=== PATIENT | female | born 1995 | race Caucasian/White ===

== ENCOUNTER 2016-07-30 23:11 | Emergency (ER) | payer BC ==
[2016-07-30 23:44] VITALS: BP 130/79; PULSE 77; TEMP 98; BMI 20.4
[2016-07-31] MEDS ORDERED: LIDOCAINE 2% VISCOUS ORAL 15 ML PO ONE (01:20)
--- NOTE | 2016-07-31 01:51 | EDPRACDOC ---
- General Information Chief Complaint: Sore Throat Stated Complaint: SORE THROAT/WHEEZING/BODYACHES Information Source: Patient Mode Of Arrival: Car Home Medications: Home Medications Ciprofloxacin HCl [Cipro] 500 mg PO BID #20 tab 02/02/16 Hydrocodone Bit/Acetaminophen [[place] 5-325 Tablet] 1 each PO Q4H #10 tab Ondansetron HCl [Zofran] 4 mg PO Q6H PRN #20 tab 02/02/16 Phenazopyridine [Pyridium] 100 mg PO TID #30 tab 02/02/16 Lidocaine [Lidocaine 2% Viscous Solution] 15 ml PO DIR PRN #1 bot 07/31/16 Allergies/Adverse Reactions: Allergies Allergy/AdvReac Type Severity Reaction Status Date / Time No Known Allergies Allergy Verified 02/02/16 11:53 - History of 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 Denies sob, contact exposure. Med hx = none. Surgical hx = none. Sore Throat Symptoms: Reports: Pain White Spots Location: Denies: Lips, Tongue, Buccal Membrane, Gingiva, Palate, Pharynx, Other Recent: Reports: None Relevant History of: Reports: None Pain Severity: Reports: Severe Urinary Output: Normal Oral Intake: Decreased Associated Signs and Symptoms: Reports: Chills, Cough ED Past Medical History - History Reviewed Yes Nurses notes reviewed and agree except as marked - Patient Medical History Psychological History: Denies: Depression Systemic History: Denies: Cancer Surgical History: Denies: Hysterectomy - Social Medical History Smoking Status: Never smoker EDM Review of Systems - Review of Systems ROS Negative Except as Marked: Yes All systems reviewed and were negative except as marked Throat: Pain Gastrointestinal: Nausea, Vomiting - Physical Exam Constitutional: No apparent distress, Alert Oriented to: Time, Person, Place Last recorded Vital Signs: Last Vital Signs Temp 98 F 07/30/16 23:40 Pulse 77 07/30/16 23:40 Resp 20 07/30/16 23:40 BP 130/79 07/30/16 23:40 Pulse Ox 98 07/30/16 23:40 Oxygen Pulse Oxygen Saturation 98 O2 Device Room Air Oxygen Flow Rate Fraction of Inspired Oxygen ( FIO2) - HEENT Head: Normal Eye Exam: negative: Conjunctival Injection, Scleral Icterus Oropharynx: negative: Drooling Nose: No Symptoms Reported Neck: Normal - Respiratory/Cardiovascular Respiratory: Normal - CTA Cardiovascular: Normal - GI Auscultation: Normal Tenderness: Non tender - Musculoskeletal Back: Normal Extremities: Normal - Integumentary Skin: Normal - Neurologic Mood Description: Normal Thought: Coherent Perception: Normal - Results Microbiology 07/30/16 23:40 Group A Streptococcus Rapid Screen - Final Throat - Rapid Strep NEGATIVE ("NORMAL" value = "NEGATIVE".) Decision Time to Discharge: 01:53 - Departure Disposition: Home Condition: Stable Final Diagnosis: Acute viral pharyngitis Instructions: Pharyngitis (ED) Education/Counseling Given To: Patient, Family Member Education/Counseling Given Regarding: Diagnosis, Treatment, Prognosis, Follow Up Referrals: Antoine Corley MD [Primary Care Provider] - One Week Prescriptions: New Lidocaine [Lidocaine 2% Viscous Solution] 15 ml PO DIR PRN #1 bot PRN Reason: Pain No Action Ciprofloxacin HCl [Cipro] 500 mg PO BID #20 tab Hydrocodone Bit/Acetaminophen [[place] 5-325 Tablet] 1 each PO Q4H #10 tab Ondansetron HCl [Zofran] 4 mg PO Q6H PRN #20 tab PRN Reason: Nausea/Vomiting Phenazopyridine [Pyridium] 100 mg PO TID #30 tab Forms: Excuse Note Additional Instructions: Follow up with primary care. Gargle and spit mouthwash. Swallow if that works better. Return to ED for any new or worsening symptoms.
== END 2016-07-31 02:05 | disposition home or self-care (01) ==
LOC: ED 23:11
DX: J02.9 Acute pharyngitis, unspecified (principal)
CPT/HCPCS: 87880; 99283; J2001